=== PATIENT | male | born 1975 | race Two or more races ===

== ENCOUNTER 2020-09-18 12:56 | Outpatient (REF) | payer OTHER, SELFPAY | END 2020-09-18 12:57 | disposition home or self-care (01) | LOC: HO.LAB 12:56 | PROVIDERS: PCP Internal Medicine; Visit Provider Internal Medicine | DX: Z20.828 Contact with and (suspected) exposure to other viral communicable diseases (principal) | CPT/HCPCS: C9803; U0003 ==

== ENCOUNTER 2021-02-13 10:41 | Outpatient (REF) | payer OTHER, SELFPAY ==
[2021-02-13 15:18] LABS: SARS COV2 PCR INHOUSE NEGATIVE (Negative)
== END 2021-02-13 10:42 | disposition home or self-care (01) ==
LOC: HO.LAB 10:41
PROVIDERS: Visit Provider Internal Medicine
DX: Z20.822 Contact with and (suspected) exposure to COVID-19 (principal)
CPT/HCPCS: C9803; U0003